=== PATIENT | male | born 1960 | race Caucasian/White ===

== ENCOUNTER 2020-11-17 11:42 | Inpatient (IN) | payer OTHER ==
[2020-11-17 20:23] VITALS: BMI 23.8
[2020-11-18] MEDS ORDERED: P-EPHED 60MG/TRIPROLIDI 2.5MG TABLET PO PRN (01:46)
[2020-11-18] MEDS ORDERED: MAGNESIUM HYDROX 2400MG/30ML ORAL SUSPENSION 30 ML CUP PO PRN (01:46)
[2020-11-18] MEDS ORDERED: MAG HYDROX/AL HYDROX/SIMETH 30 ML UNIT-DOSE CUP PO PRN (01:46)
[2020-11-18] MEDS ORDERED: NICOTINE POLACRILEX 2 MG GUM BC PRN (01:46)
[2020-11-18] MEDS ORDERED: IBUPROFEN 400 MG TABLET (FP) PO PRN (01:46)
[2020-11-18] MEDS ORDERED: guaiFENesin 200 MG/10 ML 10 ML UNIT-DOSE CUPS PO PRN (01:46)
[2020-11-18] MEDS ORDERED: MAGNESIUM CITRATE 300 ML BOTTLE PO PRN (01:46)
[2020-11-18] MEDS ORDERED: LOPERAMIDE HCL 2 MG CAPSULE PO PRN (01:46)
[2020-11-18] MEDS ORDERED: NICOTINE 7 MG/24 HOURS TOPICAL PATCH TD SCH (10:00)
[2020-11-18] MEDS: PRENATAL VITAMINS W/ FOLIC ACID TABLET (FP) PO SCH (10:02)
[2020-11-18 10:46] LABS: POTASSIUM 3.4 mmol/L (3.5-5.1)
[2020-11-18 10:52] LABS: CALCIUM 8.4 mg/dL (8.5-10.1)
[2020-11-18 10:53] LABS: ALBUMIN 2.6 g/dl (3.4-5.0)
[2020-11-18 10:54] LABS: BLOOD UREA NITROGEN 24.6 mg/dL (7-18)
[2020-11-18 10:56] LABS: BILIRUBIN,TOTAL 0.3 mg/dL (0.2-1); HEMOGLOBIN 10.4 GM/dL (11.7-16.9); MCH 31.4 pg (25.7-33.7); MCHC 34.7 g/dl (32.0-35.9); MEAN CELL VOLUME 90.5 fl (80-96); MEAN PLT VOLUME 9.3 fl (7.5-11.1); PLATELET COUNT 141 K/MM3 (134-434); RBC 3.31 M/mm3 (4.00-5.60); RDW 15.3 % (11.9-15.9); TOT PROT 5.4 g/dl (6.4-8.2); WHITE BLOOD COUNT 6.5 K/mm3 (4.0-10.0)
[2020-11-18 10:57] LABS: CREATININE 1.7 mg/dL (0.55-1.3)
[2020-11-18] MEDS: NICOTINE 14 MG/24 HOURS TOPICAL PATCH TD SCH (10:57)
[2020-11-18] MEDS ORDERED: ALBUTEROL SO4 HFA INHALER IH PRN (12:36)
[2020-11-18] MEDS ORDERED: DIGOXIN 0.125 MG TABLET (FP) PO SCH (14:00)
[2020-11-18] MEDS: APIXABAN 5 MG TABLET PO SCH ×2 (14:18→21:36)
[2020-11-18] MEDS: PANTOPRAZOLE 40 MG TABLET PO SCH (14:18)
[2020-11-18] MEDS: FUROSEMIDE 40 MG TABLET (FP) PO SCH (14:18)
[2020-11-18] MEDS: LISINOPRIL 20 MG TABLET PO SCH (14:19)
[2020-11-18] MEDS ORDERED: PT OWN MED DRAWER 7, Y5N ONE (21:31)
[2020-11-18] MEDS: MELATONIN 5 MG TABLETS PO SCH (21:35)
[2020-11-18] MEDS: THIAMINE HCL 100 MG TABLET (FP) PO SCH (21:35)
[2020-11-18] MEDS: POTASSIUM CHLORIDE ORAL LIQUID 20 MEQ/15 ML PO SCH (21:35)
[2020-11-18] MEDS: ATORVASTATIN CA 80 MG TABLET (FP) PO SCH (21:36)
[2020-11-18] MEDS ORDERED: TERAZOSIN HCL 2 MG CAPSULE PO SCH (22:00)
[2020-11-19] MEDS ORDERED: PT OWN MED DRAWER 7, Y5N ONE ×3 (03:35→10:16)
[2020-11-19] MEDS ORDERED: TAMSULOSIN HCL 0.4 MG CAP PO SCH (08:30)
[2020-11-19] MEDS: PRENATAL VITAMINS W/ FOLIC ACID TABLET (FP) PO SCH (10:13)
[2020-11-19] MEDS: POTASSIUM CHLORIDE ORAL LIQUID 20 MEQ/15 ML PO SCH (10:13)
[2020-11-19] MEDS: PANTOPRAZOLE 40 MG TABLET PO SCH (10:13)
[2020-11-19] MEDS: ESCITALOPRAM OXALATE 10 MG TABLET PO SCH (10:13)
[2020-11-19] MEDS: DIVALPROEX NA *ER* EXTEND REL 500 MG TABLET.SA (FP) PO SCH (10:14)
[2020-11-19] MEDS: HALOPERIDOL 5 MG TABLET PO SCH (10:14)
[2020-11-19] MEDS: TAMSULOSIN HCL 0.4 MG CAP PO SCH (10:14)
[2020-11-19] MEDS: NICOTINE 14 MG/24 HOURS TOPICAL PATCH TD SCH (10:17)
[2020-11-19] MEDS: LISINOPRIL 20 MG TABLET PO SCH (10:34)
[2020-11-19] MEDS: FUROSEMIDE 40 MG TABLET (FP) PO SCH (10:34)
[2020-11-19] MEDS: DIGOXIN 0.125 MG TABLET (FP) PO SCH (10:34)
[2020-11-19] MEDS: APIXABAN 5 MG TABLET PO SCH ×2 (10:35→21:12)
[2020-11-19] MEDS ORDERED: FUROSEMIDE 40 MG TABLET (FP) PO SCH (14:25)
[2020-11-19] MEDS ORDERED: ATORVASTATIN CA 40 MG TABLET (FP) ONE (18:30)
[2020-11-19] MEDS: THIAMINE HCL 100 MG TABLET (FP) PO SCH (21:12)
[2020-11-19] MEDS: MELATONIN 5 MG TABLETS PO SCH (21:12)
[2020-11-19] MEDS: TERAZOSIN HCL 1 MG CAPSULE PO SCH (21:12)
[2020-11-19] MEDS: ATORVASTATIN CA 80 MG TABLET (FP) PO SCH (21:13)
[2020-11-20] MEDS ORDERED: PT OWN MED DRAWER 7, Y5N ONE (06:43)
[2020-11-20] MEDS: TAMSULOSIN HCL 0.4 MG CAP PO SCH (07:33)
[2020-11-20] MEDS: PANTOPRAZOLE 40 MG TABLET PO SCH (09:50)
[2020-11-20] MEDS: LISINOPRIL 20 MG TABLET PO SCH (09:50)
[2020-11-20] MEDS: APIXABAN 5 MG TABLET PO SCH ×2 (09:50→22:35)
[2020-11-20] MEDS: NICOTINE 14 MG/24 HOURS TOPICAL PATCH TD SCH (09:51)
[2020-11-20] MEDS: DIVALPROEX NA *ER* EXTEND REL 500 MG TABLET.SA (FP) PO SCH (09:51)
[2020-11-20] MEDS: HALOPERIDOL 5 MG TABLET PO SCH (09:51)
[2020-11-20] MEDS: ESCITALOPRAM OXALATE 10 MG TABLET PO SCH (09:51)
[2020-11-20] MEDS: PRENATAL VITAMINS W/ FOLIC ACID TABLET (FP) PO SCH (09:51)
[2020-11-20] MEDS: FUROSEMIDE 20 MG TABLET (FP) PO SCH (10:37)
[2020-11-20] MEDS: DIGOXIN 0.125 MG TABLET (FP) PO SCH (10:37)
[2020-11-20] MEDS: THIAMINE HCL 100 MG TABLET (FP) PO SCH (21:24)
[2020-11-20] MEDS: MELATONIN 5 MG TABLETS PO SCH (21:24)
[2020-11-20] MEDS: ATORVASTATIN CA 80 MG TABLET (FP) PO SCH (21:24)
[2020-11-20] MEDS: TERAZOSIN HCL 1 MG CAPSULE PO SCH (22:36)
[2020-11-21] MEDS: TAMSULOSIN HCL 0.4 MG CAP PO SCH (08:45)
[2020-11-21] MEDS: PRENATAL VITAMINS W/ FOLIC ACID TABLET (FP) PO SCH (09:38)
[2020-11-21] MEDS: HALOPERIDOL 5 MG TABLET PO SCH (09:38)
[2020-11-21] MEDS: NICOTINE 14 MG/24 HOURS TOPICAL PATCH TD SCH (09:38)
[2020-11-21] MEDS: PANTOPRAZOLE 40 MG TABLET PO SCH (09:38)
[2020-11-21] MEDS: ESCITALOPRAM OXALATE 10 MG TABLET PO SCH (09:38)
[2020-11-21] MEDS: DIVALPROEX NA *ER* EXTEND REL 500 MG TABLET.SA (FP) PO SCH (09:39)
[2020-11-21] MEDS: APIXABAN 5 MG TABLET PO SCH ×2 (10:05→21:18)
[2020-11-21] MEDS: DIGOXIN 0.125 MG TABLET (FP) PO SCH (10:37)
[2020-11-21] MEDS: FUROSEMIDE 20 MG TABLET (FP) PO SCH (10:37)
[2020-11-21] MEDS: LISINOPRIL 20 MG TABLET PO SCH (10:38)
[2020-11-21 18:21] LABS: EPI CELLS 10 /uL (0-25.1); HYALINE CASTS 1 /uL (0-3.1); URINE APPEARANCE CLEAR; URINE BACTERIA 16 /uL (0-1359); URINE BILIRUBIN NEGATIVE (NEGATIVE); URINE COLOR YELLOW; URINE GLUCOSE (UA) NEGATIVE (NEGATIVE); URINE KETONE NEGATIVE (NEGATIVE); URINE LEUK ESTERASE 1+ (NEGATIVE); URINE NITRITE NEGATIVE (NEGATIVE); URINE PROTEIN NEGATIVE (NEGATIVE); URINE RBC 9 /uL (0-23.9); URINE WBC 25 /uL (0-25.8)
[2020-11-21] MEDS ORDERED: ATORVASTATIN CA 40 MG TABLET (FP) ONE (19:33)
[2020-11-21] MEDS: MELATONIN 5 MG TABLETS PO SCH (21:17)
[2020-11-21] MEDS: ATORVASTATIN CA 80 MG TABLET (FP) PO SCH (21:17)
[2020-11-21] MEDS: THIAMINE HCL 100 MG TABLET (FP) PO SCH (21:17)
[2020-11-21] MEDS: TERAZOSIN HCL 1 MG CAPSULE PO SCH (21:18)
[2020-11-22] MEDS: ACETAMINOPHEN 325 MG TABLET (FP) PO PRN (04:04)
[2020-11-22] MEDS: APIXABAN 5 MG TABLET PO SCH ×2 (09:45→21:09)
[2020-11-22] MEDS: ESCITALOPRAM OXALATE 10 MG TABLET PO SCH (09:46)
[2020-11-22] MEDS: PANTOPRAZOLE 40 MG TABLET PO SCH (09:46)
[2020-11-22] MEDS: PRENATAL VITAMINS W/ FOLIC ACID TABLET (FP) PO SCH (09:46)
[2020-11-22] MEDS: LISINOPRIL 20 MG TABLET PO SCH (09:46)
[2020-11-22] MEDS: HALOPERIDOL 5 MG TABLET PO SCH (09:46)
[2020-11-22] MEDS: TAMSULOSIN HCL 0.4 MG CAP PO SCH (09:47)
[2020-11-22] MEDS: DIVALPROEX NA *ER* EXTEND REL 500 MG TABLET.SA (FP) PO SCH (09:50)
[2020-11-22] MEDS: NICOTINE 14 MG/24 HOURS TOPICAL PATCH TD SCH (09:51)
[2020-11-22] MEDS ORDERED: PT OWN MED DRAWER 7, Y5N ONE (10:23)
[2020-11-22 10:56] LABS: POTASSIUM 4.2 mmol/L (3.5-5.1)
[2020-11-22] MEDS: DIGOXIN 0.125 MG TABLET (FP) PO SCH (10:56)
[2020-11-22] MEDS: FUROSEMIDE 20 MG TABLET (FP) PO SCH (10:56)
[2020-11-22 11:00] LABS: BLOOD UREA NITROGEN 16.7 mg/dL (7-18); CALCIUM 8.6 mg/dL (8.5-10.1)
[2020-11-22 11:01] LABS: ALBUMIN 2.9 g/dl (3.4-5.0)
[2020-11-22 11:03] LABS: CREATININE 1.4 mg/dL (0.55-1.3)
[2020-11-22 11:05] LABS: TOT PROT 5.7 g/dl (6.4-8.2)
[2020-11-22 11:07] LABS: BILIRUBIN,TOTAL 0.9 mg/dL (0.2-1)
[2020-11-22] MEDS ORDERED: ATORVASTATIN CA 40 MG TABLET (FP) ONE (18:51)
[2020-11-22] MEDS: THIAMINE HCL 100 MG TABLET (FP) PO SCH (21:09)
[2020-11-22] MEDS: MELATONIN 5 MG TABLETS PO SCH (21:09)
[2020-11-22] MEDS: TERAZOSIN HCL 1 MG CAPSULE PO SCH (21:10)
[2020-11-22] MEDS: ATORVASTATIN CA 80 MG TABLET (FP) PO SCH (21:10)
[2020-11-23] MEDS ORDERED: PT OWN MED DRAWER 7, Y5N ONE (08:43)
[2020-11-23] MEDS: PRENATAL VITAMINS W/ FOLIC ACID TABLET (FP) PO SCH (09:40)
[2020-11-23] MEDS: DIVALPROEX NA *ER* EXTEND REL 500 MG TABLET.SA (FP) PO SCH (09:40)
[2020-11-23] MEDS: NICOTINE 14 MG/24 HOURS TOPICAL PATCH TD SCH (09:40)
[2020-11-23] MEDS: FUROSEMIDE 20 MG TABLET (FP) PO SCH (09:40)
[2020-11-23] MEDS: DIGOXIN 0.125 MG TABLET (FP) PO SCH (09:41)
[2020-11-23] MEDS: HALOPERIDOL 5 MG TABLET PO SCH (09:42)
[2020-11-23] MEDS: ESCITALOPRAM OXALATE 10 MG TABLET PO SCH (09:42)
[2020-11-23] MEDS: TAMSULOSIN HCL 0.4 MG CAP PO SCH (09:42)
[2020-11-23] MEDS: LISINOPRIL 20 MG TABLET PO SCH (09:42)
[2020-11-23] MEDS: APIXABAN 5 MG TABLET PO SCH ×2 (09:42→21:08)
[2020-11-23] MEDS: PANTOPRAZOLE 40 MG TABLET PO SCH (09:43)
[2020-11-23] MEDS ORDERED: ATORVASTATIN CA 40 MG TABLET (FP) ONE (18:47)
[2020-11-23] MEDS: MELATONIN 5 MG TABLETS PO SCH (21:07)
[2020-11-23] MEDS: THIAMINE HCL 100 MG TABLET (FP) PO SCH (21:07)
[2020-11-23] MEDS: TERAZOSIN HCL 1 MG CAPSULE PO SCH (21:08)
[2020-11-23] MEDS: ATORVASTATIN CA 80 MG TABLET (FP) PO SCH (21:08)
[2020-11-23] MEDS ORDERED: MASKS NR ONE (21:39)
[2020-11-24] MEDS: ACETAMINOPHEN 325 MG TABLET (FP) PO PRN (06:35)
[2020-11-24] MEDS: NICOTINE 14 MG/24 HOURS TOPICAL PATCH TD SCH (09:54)
[2020-11-24] MEDS: DIGOXIN 0.125 MG TABLET (FP) PO SCH (09:55)
[2020-11-24] MEDS: PRENATAL VITAMINS W/ FOLIC ACID TABLET (FP) PO SCH (09:55)
[2020-11-24] MEDS: HALOPERIDOL 5 MG TABLET PO SCH (09:56)
[2020-11-24] MEDS: TAMSULOSIN HCL 0.4 MG CAP PO SCH (09:56)
[2020-11-24] MEDS: FUROSEMIDE 20 MG TABLET (FP) PO SCH (09:56)
[2020-11-24] MEDS: PANTOPRAZOLE 40 MG TABLET PO SCH (09:57)
[2020-11-24] MEDS: APIXABAN 5 MG TABLET PO SCH ×2 (09:57→21:09)
[2020-11-24] MEDS: LISINOPRIL 20 MG TABLET PO SCH (09:57)
[2020-11-24] MEDS: ESCITALOPRAM OXALATE 10 MG TABLET PO SCH (09:57)
[2020-11-24] MEDS: DIVALPROEX NA *ER* EXTEND REL 500 MG TABLET.SA (FP) PO SCH (09:58)
[2020-11-24] MEDS ORDERED: PT OWN MED DRAWER 7, Y5N ONE (10:48)
[2020-11-24] MEDS ORDERED: ATORVASTATIN CA 40 MG TABLET (FP) ONE (18:50)
[2020-11-24] MEDS: THIAMINE HCL 100 MG TABLET (FP) PO SCH (21:09)
[2020-11-24] MEDS: MELATONIN 5 MG TABLETS PO SCH (21:09)
[2020-11-24] MEDS: TERAZOSIN HCL 1 MG CAPSULE PO SCH (21:10)
[2020-11-24] MEDS: ATORVASTATIN CA 80 MG TABLET (FP) PO SCH (21:10)
[2020-11-25] MEDS ORDERED: PT OWN MED DRAWER 7, Y5N ONE ×2 (08:35→21:09)
[2020-11-25] MEDS: ESCITALOPRAM OXALATE 10 MG TABLET PO SCH (09:57)
[2020-11-25] MEDS: PANTOPRAZOLE 40 MG TABLET PO SCH (09:57)
[2020-11-25] MEDS: HALOPERIDOL 5 MG TABLET PO SCH (09:57)
[2020-11-25] MEDS: APIXABAN 5 MG TABLET PO SCH ×2 (09:57→21:25)
[2020-11-25] MEDS: LISINOPRIL 20 MG TABLET PO SCH (09:57)
[2020-11-25] MEDS: TAMSULOSIN HCL 0.4 MG CAP PO SCH (09:58)
[2020-11-25] MEDS: FUROSEMIDE 20 MG TABLET (FP) PO SCH (09:58)
[2020-11-25] MEDS: DIVALPROEX NA *ER* EXTEND REL 500 MG TABLET.SA (FP) PO SCH (09:58)
[2020-11-25] MEDS: DIGOXIN 0.125 MG TABLET (FP) PO SCH (09:58)
[2020-11-25] MEDS: NICOTINE 14 MG/24 HOURS TOPICAL PATCH TD SCH (10:01)
[2020-11-25] MEDS: PRENATAL VITAMINS W/ FOLIC ACID TABLET (FP) PO SCH (10:01)
[2020-11-25] MEDS ORDERED: ATORVASTATIN CA 40 MG TABLET (FP) ONE (19:06)
[2020-11-25] MEDS: MELATONIN 5 MG TABLETS PO SCH (21:25)
[2020-11-25] MEDS: TERAZOSIN HCL 1 MG CAPSULE PO SCH (21:25)
[2020-11-25] MEDS: THIAMINE HCL 100 MG TABLET (FP) PO SCH (21:25)
[2020-11-25] MEDS: ATORVASTATIN CA 80 MG TABLET (FP) PO SCH (21:26)
[2020-11-26] MEDS: PRENATAL VITAMINS W/ FOLIC ACID TABLET (FP) PO SCH (09:51)
[2020-11-26] MEDS: DIVALPROEX NA *ER* EXTEND REL 500 MG TABLET.SA (FP) PO SCH (09:51)
[2020-11-26] MEDS: HALOPERIDOL 5 MG TABLET PO SCH (09:51)
[2020-11-26] MEDS: APIXABAN 5 MG TABLET PO SCH ×2 (09:52→21:11)
[2020-11-26] MEDS: LISINOPRIL 20 MG TABLET PO SCH (09:52)
[2020-11-26] MEDS: ESCITALOPRAM OXALATE 10 MG TABLET PO SCH (09:52)
[2020-11-26] MEDS: PANTOPRAZOLE 40 MG TABLET PO SCH (09:52)
[2020-11-26] MEDS: FUROSEMIDE 20 MG TABLET (FP) PO SCH (09:52)
[2020-11-26] MEDS: TAMSULOSIN HCL 0.4 MG CAP PO SCH (09:53)
[2020-11-26] MEDS: DIGOXIN 0.125 MG TABLET (FP) PO SCH (09:54)
[2020-11-26] MEDS: NICOTINE 14 MG/24 HOURS TOPICAL PATCH TD SCH (09:55)
[2020-11-26] MEDS: guaiFENesin 200 MG/10 ML 10 ML UNIT-DOSE CUPS PO SCH (17:47)
[2020-11-26] MEDS ORDERED: ATORVASTATIN CA 40 MG TABLET (FP) ONE (19:21)
[2020-11-26] MEDS ORDERED: PT OWN MED DRAWER 7, Y5N ONE (19:22)
[2020-11-26] MEDS: MELATONIN 5 MG TABLETS PO SCH (21:12)
[2020-11-26] MEDS: THIAMINE HCL 100 MG TABLET (FP) PO SCH (21:12)
[2020-11-26] MEDS: TERAZOSIN HCL 1 MG CAPSULE PO SCH (21:12)
[2020-11-26] MEDS: ATORVASTATIN CA 80 MG TABLET (FP) PO SCH (21:13)
[2020-11-27] MEDS: guaiFENesin 200 MG/10 ML 10 ML UNIT-DOSE CUPS PO SCH ×4 (00:30→18:47)
[2020-11-27] MEDS: PRENATAL VITAMINS W/ FOLIC ACID TABLET (FP) PO SCH (09:29)
[2020-11-27] MEDS: DIVALPROEX NA *ER* EXTEND REL 500 MG TABLET.SA (FP) PO SCH (09:29)
[2020-11-27] MEDS: TAMSULOSIN HCL 0.4 MG CAP PO SCH (09:30)
[2020-11-27] MEDS: APIXABAN 5 MG TABLET PO SCH ×2 (09:30→21:05)
[2020-11-27] MEDS: HALOPERIDOL 5 MG TABLET PO SCH (09:30)
[2020-11-27] MEDS: PANTOPRAZOLE 40 MG TABLET PO SCH (09:30)
[2020-11-27] MEDS: LISINOPRIL 20 MG TABLET PO SCH (09:30)
[2020-11-27] MEDS: DIGOXIN 0.125 MG TABLET (FP) PO SCH (09:31)
[2020-11-27] MEDS: ESCITALOPRAM OXALATE 10 MG TABLET PO SCH (09:31)
[2020-11-27] MEDS: FUROSEMIDE 20 MG TABLET (FP) PO SCH (09:32)
[2020-11-27] MEDS: NICOTINE 14 MG/24 HOURS TOPICAL PATCH TD SCH (09:32)
[2020-11-27] MEDS ORDERED: ATORVASTATIN CA 40 MG TABLET (FP) ONE (18:38)
[2020-11-27] MEDS: THIAMINE HCL 100 MG TABLET (FP) PO SCH (21:05)
[2020-11-27] MEDS: MELATONIN 5 MG TABLETS PO SCH (21:05)
[2020-11-27] MEDS: TERAZOSIN HCL 1 MG CAPSULE PO SCH (21:05)
[2020-11-27] MEDS: ATORVASTATIN CA 80 MG TABLET (FP) PO SCH (21:06)
[2020-11-27] MEDS ORDERED: PT OWN MED DRAWER 7, Y5N ONE (21:37)
[2020-11-28] MEDS: guaiFENesin 200 MG/10 ML 10 ML UNIT-DOSE CUPS PO SCH ×4 (00:30→18:45)
[2020-11-28] MEDS: TAMSULOSIN HCL 0.4 MG CAP PO SCH (08:45)
[2020-11-28] MEDS: ESCITALOPRAM OXALATE 10 MG TABLET PO SCH (09:45)
[2020-11-28] MEDS: NICOTINE 14 MG/24 HOURS TOPICAL PATCH TD SCH (09:45)
[2020-11-28] MEDS: APIXABAN 5 MG TABLET PO SCH ×2 (09:45→21:29)
[2020-11-28] MEDS: FUROSEMIDE 20 MG TABLET (FP) PO SCH (09:45)
[2020-11-28] MEDS: PANTOPRAZOLE 40 MG TABLET PO SCH (09:47)
[2020-11-28] MEDS: HALOPERIDOL 5 MG TABLET PO SCH (09:48)
[2020-11-28] MEDS: PRENATAL VITAMINS W/ FOLIC ACID TABLET (FP) PO SCH (09:48)
[2020-11-28] MEDS: DIGOXIN 0.125 MG TABLET (FP) PO SCH (09:48)
[2020-11-28] MEDS: LISINOPRIL 20 MG TABLET PO SCH (09:48)
[2020-11-28] MEDS: DIVALPROEX NA *ER* EXTEND REL 500 MG TABLET.SA (FP) PO SCH (10:20)
[2020-11-28] MEDS ORDERED: ATORVASTATIN CA 40 MG TABLET (FP) ONE (19:29)
[2020-11-28] MEDS ORDERED: PT OWN MED DRAWER 7, Y5N ONE (19:30)
[2020-11-28] MEDS: TERAZOSIN HCL 1 MG CAPSULE PO SCH (21:28)
[2020-11-28] MEDS: THIAMINE HCL 100 MG TABLET (FP) PO SCH (21:28)
[2020-11-28] MEDS: MELATONIN 5 MG TABLETS PO SCH (21:29)
[2020-11-28] MEDS: ATORVASTATIN CA 80 MG TABLET (FP) PO SCH (21:29)
[2020-11-29] MEDS: guaiFENesin 200 MG/10 ML 10 ML UNIT-DOSE CUPS PO SCH ×2 (00:47→06:52)
[2020-11-29] MEDS ORDERED: PT OWN MED DRAWER 7, Y5N ONE (06:54)
[2020-11-29] MEDS ORDERED: guaiFENesin 200 MG/10 ML 10 ML UNIT-DOSE CUPS PO PRN (08:19)
[2020-11-29] MEDS: PANTOPRAZOLE 40 MG TABLET PO SCH (09:38)
[2020-11-29] MEDS: HALOPERIDOL 5 MG TABLET PO SCH (09:39)
[2020-11-29] MEDS: LISINOPRIL 20 MG TABLET PO SCH (09:39)
[2020-11-29] MEDS: ESCITALOPRAM OXALATE 10 MG TABLET PO SCH (09:39)
[2020-11-29] MEDS: DIVALPROEX NA *ER* EXTEND REL 500 MG TABLET.SA (FP) PO SCH (09:39)
[2020-11-29] MEDS: PRENATAL VITAMINS W/ FOLIC ACID TABLET (FP) PO SCH (09:40)
[2020-11-29] MEDS: NICOTINE 14 MG/24 HOURS TOPICAL PATCH TD SCH (09:40)
[2020-11-29] MEDS: DIGOXIN 0.125 MG TABLET (FP) PO SCH (09:41)
[2020-11-29] MEDS: FUROSEMIDE 20 MG TABLET (FP) PO SCH (09:42)
[2020-11-29] MEDS: TAMSULOSIN HCL 0.4 MG CAP PO SCH (09:42)
[2020-11-29] MEDS: APIXABAN 5 MG TABLET PO SCH ×2 (09:42→21:08)
[2020-11-29] MEDS ORDERED: ATORVASTATIN CA 40 MG TABLET (FP) ONE (19:05)
[2020-11-29] MEDS: THIAMINE HCL 100 MG TABLET (FP) PO SCH (21:07)
[2020-11-29] MEDS: MELATONIN 5 MG TABLETS PO SCH (21:07)
[2020-11-29] MEDS: TERAZOSIN HCL 1 MG CAPSULE PO SCH (21:08)
[2020-11-29] MEDS: ATORVASTATIN CA 80 MG TABLET (FP) PO SCH (21:08)
[2020-11-30] MEDS ORDERED: PT OWN MED DRAWER 7, Y5N ONE ×3 (08:24→21:03)
[2020-11-30] MEDS: TAMSULOSIN HCL 0.4 MG CAP PO SCH (09:24)
[2020-11-30] MEDS: DIVALPROEX NA *ER* EXTEND REL 500 MG TABLET.SA (FP) PO SCH (09:24)
[2020-11-30] MEDS: APIXABAN 5 MG TABLET PO SCH ×2 (09:25→21:02)
[2020-11-30] MEDS: DIGOXIN 0.125 MG TABLET (FP) PO SCH (09:25)
[2020-11-30] MEDS: HALOPERIDOL 5 MG TABLET PO SCH (09:25)
[2020-11-30] MEDS: PANTOPRAZOLE 40 MG TABLET PO SCH (09:26)
[2020-11-30] MEDS: FUROSEMIDE 20 MG TABLET (FP) PO SCH (09:26)
[2020-11-30] MEDS: PRENATAL VITAMINS W/ FOLIC ACID TABLET (FP) PO SCH (09:27)
[2020-11-30] MEDS: LISINOPRIL 20 MG TABLET PO SCH (09:27)
[2020-11-30] MEDS: NICOTINE 14 MG/24 HOURS TOPICAL PATCH TD SCH (09:27)
[2020-11-30] MEDS: ESCITALOPRAM OXALATE 10 MG TABLET PO SCH (09:27)
[2020-11-30] MEDS ORDERED: ATORVASTATIN CA 40 MG TABLET (FP) ONE (19:11)
[2020-11-30] MEDS: THIAMINE HCL 100 MG TABLET (FP) PO SCH (21:01)
[2020-11-30] MEDS: MELATONIN 5 MG TABLETS PO SCH (21:01)
[2020-11-30] MEDS: TERAZOSIN HCL 1 MG CAPSULE PO SCH (21:02)
[2020-11-30] MEDS: ATORVASTATIN CA 80 MG TABLET (FP) PO SCH (21:02)
[2020-12-01] MEDS ORDERED: PT OWN MED DRAWER 7, Y5N ONE ×4 (03:14→22:03)
[2020-12-01 07:03] VITALS: TEMP 97.3
[2020-12-01] MEDS ORDERED: DIVALPROEX NA *ER* EXTEND REL 500 MG TABLET.SA (FP) PO STA (07:27)
[2020-12-01] MEDS: TAMSULOSIN HCL 0.4 MG CAP PO SCH (07:33)
[2020-12-01] MEDS: DIGOXIN 0.125 MG TABLET (FP) PO SCH (09:45)
[2020-12-01] MEDS: LISINOPRIL 20 MG TABLET PO SCH (09:48)
[2020-12-01] MEDS: FUROSEMIDE 20 MG TABLET (FP) PO SCH (09:48)
[2020-12-01] MEDS: APIXABAN 5 MG TABLET PO SCH ×2 (09:48→21:09)
[2020-12-01] MEDS: PANTOPRAZOLE 40 MG TABLET PO SCH (09:48)
[2020-12-01] MEDS: ESCITALOPRAM OXALATE 10 MG TABLET PO SCH (09:48)
[2020-12-01] MEDS: PRENATAL VITAMINS W/ FOLIC ACID TABLET (FP) PO SCH (09:49)
[2020-12-01] MEDS: NICOTINE 14 MG/24 HOURS TOPICAL PATCH TD SCH (09:49)
[2020-12-01] MEDS: HALOPERIDOL 5 MG TABLET PO SCH (09:49)
[2020-12-01] MEDS ORDERED: ATORVASTATIN CA 40 MG TABLET (FP) ONE (18:55)
[2020-12-01] MEDS: THIAMINE HCL 100 MG TABLET (FP) PO SCH (21:09)
[2020-12-01] MEDS: MELATONIN 5 MG TABLETS PO SCH (21:09)
[2020-12-01] MEDS: TERAZOSIN HCL 1 MG CAPSULE PO SCH (21:10)
[2020-12-01] MEDS: ATORVASTATIN CA 80 MG TABLET (FP) PO SCH (21:11)
[2020-12-02 06:57] VITALS: BP 136/76
[2020-12-02] MEDS ORDERED: PT OWN MED DRAWER 7, Y5N ONE (08:40)
[2020-12-02] MEDS: HALOPERIDOL 5 MG TABLET PO SCH (09:09)
[2020-12-02] MEDS: ESCITALOPRAM OXALATE 10 MG TABLET PO SCH (09:09)
[2020-12-02] MEDS: LISINOPRIL 20 MG TABLET PO SCH (09:09)
[2020-12-02] MEDS: TAMSULOSIN HCL 0.4 MG CAP PO SCH (09:09)
[2020-12-02] MEDS: APIXABAN 5 MG TABLET PO SCH (09:09)
[2020-12-02] MEDS: FUROSEMIDE 20 MG TABLET (FP) PO SCH (09:09)
[2020-12-02] MEDS: PANTOPRAZOLE 40 MG TABLET PO SCH (09:09)
[2020-12-02] MEDS: DIGOXIN 0.125 MG TABLET (FP) PO SCH (09:10)
[2020-12-02] MEDS: NICOTINE 14 MG/24 HOURS TOPICAL PATCH TD SCH (09:10)
[2020-12-02] MEDS: PRENATAL VITAMINS W/ FOLIC ACID TABLET (FP) PO SCH (09:10)
[2020-12-02 09:13] VITALS: PULSE 64
[2020-12-02] MEDS ORDERED: DIVALPROEX NA *ER* EXTEND REL 500 MG TABLET.SA (FP) PO SCH (10:00)
== END 2020-12-02 10:12 | disposition home or self-care (01) | DRG 895 ==
LOC: YASAS 11:42 → UNDOADMIN 19:35 → Y3N 19:35 → Y3E 11-18 03:00
PROVIDERS: ADMIT Allergy & Immunology; ATTEND Allergy & Immunology
PROC: HZ42ZZZ Group Counseling for Substance Abuse Treatment, Cognitive-Behavioral (ICD-10-PCS; principal; 2020-11-18)
DX: F10.20 Alcohol dependence, uncomplicated (principal); F20.0 Paranoid schizophrenia; N17.9 Acute kidney failure, unspecified; F12.20 Cannabis dependence, uncomplicated; F17.210 Nicotine dependence, cigarettes, uncomplicated; F39 Unspecified mood [affective] disorder; F31.9 Bipolar disorder, unspecified; F41.9 Anxiety disorder, unspecified; I10 Essential (primary) hypertension; I48.91 Unspecified atrial fibrillation; Z79.01 Long term (current) use of anticoagulants; I25.2 Old myocardial infarction; E78.5 Hyperlipidemia, unspecified; E87.6 Hypokalemia; R00.1 Bradycardia, unspecified; R42 Dizziness and giddiness; R06.02 Shortness of breath
CPT/HCPCS: 36415; 70450-TC; 70486-TC; 80053; 80162; 80164; 81003; 82962; 84132; 85027; 86780; 93005; 93010; C9803; U0003